=== PATIENT | male | born 1965 | race Caucasian/White ===

== ENCOUNTER → 2016-09-15 | Outpatient (CLI) | payer BC | LOC: NM 08-24 09:00 | DX: R10.9 Unspecified abdominal pain (principal); K52.9 Noninfective gastroenteritis and colitis, unspecified; K21.9 Gastro-esophageal reflux disease without esophagitis; Z91.041 Radiographic dye allergy status | CPT/HCPCS: 78227; A9537; J2805 ==

== ENCOUNTER → 2016-09-29 | Outpatient (CLI) | payer BC | LOC: CT 09-25 11:00 | DX: R10.9 Unspecified abdominal pain (principal); K21.9 Gastro-esophageal reflux disease without esophagitis; R14.0 Abdominal distension (gaseous); M54.9 Dorsalgia, unspecified; K76.0 Fatty (change of) liver, not elsewhere classified | CPT/HCPCS: J7050; Q9962 ==

== ENCOUNTER → 2016-10-10 | Outpatient (CLI) | payer BC | LOC: KOH-I 11:00 | DX: N28.1 Cyst of kidney, acquired (principal); R93.5 Abnormal findings on diagnostic imaging of other abdominal regions, including retroperitoneum | CPT/HCPCS: 76775 ==

== ENCOUNTER → 2017-04-02 | Outpatient (CLI) | payer OTHER | LOC: RAD 17:59 | DX: S69.90XA Unspecified injury of unspecified wrist, hand and finger(s), initial encounter (principal) | CPT/HCPCS: 73140 ==

== ENCOUNTER → 2020-07-14 | Outpatient (CLI) | payer BC, OTHER | LOC: NM 09:00 | DX: R10.9 Unspecified abdominal pain (principal); R14.0 Abdominal distension (gaseous); R68.81 Early satiety | CPT/HCPCS: 78264; A9541 ==

== ENCOUNTER → 2021-01-06 | Outpatient (CLI) | payer BC, OTHER | LOC: EXRD 08:21 | DX: M79.672 Pain in left foot (principal); M79.671 Pain in right foot; G89.29 Other chronic pain; M77.32 Calcaneal spur, left foot; M77.31 Calcaneal spur, right foot | CPT/HCPCS: 73620 ==

== ENCOUNTER → 2021-09-07 | Outpatient (CLI) | payer BC | LOC: MRI 14:24 | DX: M24.572 Contracture, left ankle (principal); M79.672 Pain in left foot; M72.2 Plantar fascial fibromatosis; M76.62 Achilles tendinitis, left leg; M77.32 Calcaneal spur, left foot; M24.571 Contracture, right ankle; M65.871 Other synovitis and tenosynovitis, right ankle and foot; M20.41 Other hammer toe(s) (acquired), right foot; M76.61 Achilles tendinitis, right leg | CPT/HCPCS: 73721 ==

== ENCOUNTER → 2022-03-08 | Outpatient (CLI) | payer BC ==
[2022-03-08 07:02] LABS: HEMOGLOBIN 15.3 gm/dl (14.0-17.5); RED BLOOD COUNT 5.14 M/UL (4.20-5.50); WHITE BLOOD COUNT 6.7 K/UL (4.5-11.0)
[2022-03-08 07:45] LABS: BUN/CREATININE RATIO 17 (0-10)
[2022-03-09 11:14] LABS: CREATININE, URINE 172.4 mg/dL (Not Estab.)
== END ==
LOC: LAB 06:27
PROVIDERS: Nurse Practitioner Family
DX: I10 Essential (primary) hypertension (principal); E78.5 Hyperlipidemia, unspecified; E79.0 Hyperuricemia without signs of inflammatory arthritis and tophaceous disease; R73.9 Hyperglycemia, unspecified; Z00.00 Encounter for general adult medical examination without abnormal findings
CPT/HCPCS: 36415; 80053; 80061; 82043; 82570; 82607; 83036; 84439; 84443; 84550; 85025